=== PATIENT | male | born 1945 | race Caucasian/White ===

== ENCOUNTER 2023-12-31 13:15 | Observation (INO) | payer MEDICARE ==
--- NOTE | 2023-12-31 13:37 | ED ---
Fall HPI - General Chief Complaint: Fall Stated Complaint: Fall on thinners Time Seen by Provider: 12/31/23 13:30 Source: patient, family, RN notes reviewed Mode of arrival: ambulatory - History of Present Illness Initial Comments: This is a 78-year-old male presents emergency department company by his with referral from urgent care for upper respiratory infection symptoms and fall on thinners. Patient states that while he was at urgent care today he informed the provider that he had a lightheaded event while he was in the restroom on Friday which caused him to bump the side of his head on the wall. He was urged to come to the emergency department for further evaluation due to head injury on blood thinner use. Additionally patient states that he was evaluated at urgent care on Friday and was discharged home with oral amoxicillin where a viral swab was completed that was negative. States that his symptoms of cough and generalized fatigue have not been improving. Currently patient denies chest pain, shortness of breath, difficulty breathing, blurry or double vision, headaches. - Related Data Home Medications Medication Instructions Recorded Confirmed Alirocumab [Praluent Pen] 75 mg SQ Q14D 12/31/23 12/31/23 Amoxicillin 875 mg PO BID 12/31/23 12/31/23 Aspirin EC [Ecotrin Low Dose] 81 mg PO DAILY 12/31/23 12/31/23 Atorvastatin [Lipitor] 80 mg PO HS 12/31/23 12/31/23 Clopidogrel [Plavix] 75 mg PO DAILY 12/31/23 12/31/23 Fexofenadine HCl [Cherri Allergy] 180 mg PO DAILY 12/31/23 12/31/23 Pantoprazole [Protonix] 40 mg PO DAILY 12/31/23 12/31/23 carvediloL [Coreg] 3.125 mg PO BID 12/31/23 12/31/23 Allergies Allergy/AdvReac Type Severity Reaction Status Date / Time No Known Allergies Allergy Verified 12/31/23 16:33 Review of Systems ROS Statement: Those systems with pertinent positive or pertinent negative responses have been documented in the HPI. ROS Other: All systems not noted in ROS Statement are negative. Past Medical History Past Medical History: Hypertension, Myocardial Infarction ([place]) History of Any Multi-Drug Resistant Organisms: None Reported Past Surgical History: Heart Catheterization With Stent, Orthopedic Surgery Past Psychological History: No Psychological Hx Reported Smoking Status: Never smoker Past Alcohol Use History: None Reported Past Drug Use History: None Reported General Exam - General Exam Comments Initial Comments: Visual Physical Exam Vital signs reviewed General: Well-appearing, nontoxic, no acute distress. Head: Normocephalic, atraumatic Eyes: PERRLA, EOMI ENT: Airway patent Chest: Nonlabored breathing Skin: No visual rash, normal skin tone Neuro: Alert and oriented 3 Musculoskeletal: No gross abnormalities Limitations: no limitations General appearance: alert, in no apparent distress Head exam: Present: atraumatic, normocephalic, normal inspection Eye exam: Present: normal appearance, PERRL, EOMI. Absent: scleral icterus, conjunctival injection, periorbital swelling ENT exam: Present: normal exam, mucous membranes moist Neck exam: Present: normal inspection. Absent: tenderness, meningismus, lymphadenopathy Respiratory exam: Present: normal lung sounds bilaterally, wheezes, rhonchi (right lower lobe). Absent: respiratory distress, stridor Cardiovascular Exam: Present: regular rate, normal rhythm, normal heart sounds. Absent: systolic murmur, diastolic murmur, rubs, gallop, clicks GI/Abdominal exam: Present: soft, normal bowel sounds. Absent: distended, tenderness, guarding, rebound, rigid Extremities exam: Present: normal inspection, full ROM, normal capillary refill. Absent: tenderness, pedal edema, joint swelling, calf tenderness Back exam: Present: normal inspection Neurological exam: Present: alert, oriented X3, CN II-XII intact Course Vital Signs 12/31/23 12/31/23 13:16 16:58 Temperature 98.5 F Pulse Rate 74 69 Respiratory 16 18 Rate Blood Pressure 138/86 143/67 O2 Sat by Pulse 100 95 Oximetry Medical Decision Making - Medical Decision Making Was pt. sent in by a medical professional or institution (, PA, BAKERY SALES CLERK, urgent care, hospital, or [facility]...) When possible be specific @ -Patient was advised by urgent care to report to the emergency department for further evaluation of a head injury on blood thinners and to upper respiratory infection symptoms Did you speak to anyone other than the patient for history (EMS, parent, family, police, friend...)? What history was obtained from this source @ -I spoke to the patient's at bedside who states that the patient has been suffering upper respiratory infection symptoms such as cough fatigue and runny nose over the past few days. Did you review nursing and triage notes (agree or disagree)? Why? @ -I reviewed and agree with nursing and triage notes Were old charts reviewed (outside hosp., previous admission, EMS record, old EKG, old radiological studies, urgent care reports/EKG's, [facility] records)? Report findings @ -No old charts were reviewed Differential Diagnosis (chest pain, altered mental status, abdominal pain women, abdominal pain men, vaginal bleeding, weakness, fever, dyspnea, syncope, headache, dizziness, GI bleed, back pain, seizure, CVA, palpatations, mental health, musculoskeletal)? @ -COVID 19, RSV, influenza, pneumonia, acute bronchitis, URI, this list is not all inclusive EKG interpreted by me (3pts min.). @ -Completed at 1355 sinus rhythm with a ventricular rate of 69, SC interval 144, QTc 374. No acute signs of ischemia. X-rays interpreted by me (1pt min.). @ -Chest x-ray reveals possible underlying COPD with focal opacity/pneumonia at the right base CT interpreted by me (1pt min.). @ -CT of the brain and C-spine revealed no no acute intracranial or cervical abnormality noted U/S interpreted by me (1pt. min.). @ -None done What testing was considered but not performed or refused? (CT, X-rays, U/S, labs)? Why? @ -None What meds were considered but not given or refused? Why? @ -None Did you discuss the management of the patient with other professionals (stefania medel i.e. , PA, BAKERY SALES CLERK, lab, RT, psych nurse, social worker clinical, ham pumper, teacher, chief privacy officer, egg caser)? Give summary @ -I spoke with sound internal medicine physician Dr. Bernardo, reviewed the patient's presentation and findings concerning of hyponatremia with a sodium of 125 and right lobar pneumonia. Patient is accepted for admission. Was smoking cessation discussed for >3mins.? @ -No Was critical care preformed (if so, how long)? @ -No Were there social determinants of health that impacted care today? How? (Homelessness, low income, unemployed, alcoholism, drug addiction, transport ation, low edu. Level, literacy, decrease access to med. care, [facility], rehab)? @ -No Was there de-escalation of care discussed even if they declined (Discuss DNR or withdrawal of care, Hospice)? DNR status @ -No What co-morbidities impacted this encounter? (DM, HTN, Smoking, COPD, CAD, Cancer, CVA, ARF, Chemo, Hep., AIDS, mental health diagnosis, sleep apnea, morbid obesity)? @ -None Was patient admitted / discharged? Hospital course, mention meds given and route, prescriptions, significant lab abnormalities, going to OR and other pertinent info. @ -Admitted. 78-year-old male with a fall on blood thinners and upper respiratory infection symptoms. On physical examination patient is in no signs acute distress, there are signs of wheezing and rhonchi of the right lower lobe. Vitals are stable. There are no neurological or focal deficits. CT brain and C-spine negative for acute process. Chest x-ray concerning for right pneumonia, generally laboratory studies reveal CBC is unremarkable, coagulation profile within normal limits, hyponatremia with a sodium of 125 and mild wang saminitis with an AST 77 ALT 75, troponin not elevated at less than 0.012, cephid negative. Patient is provided with a liter fluid bolus in the emergency department and will be admitted to internal medicine for continued fluid hydration and antibiotics for hyponatremia and pneumonia. Discussed with Dr. Hayden Undiagnosed new problem with uncertain prognosis? @ -No Drug Therapy requiring intensive monitoring for toxicity (Heparin, Nitro, Insulin, Cardizem)? @ -No Were any procedures done? @ -No Diagnosis/symptom? @ -Hyponatremia, pneumonia Acute, or Chronic, or Acute on Chronic? @ -acute Uncomplicated (without systemic symptoms) or Complicated (systemic symptoms)? @ -uncomplicated Side effects of treatment? @ -No Exacerbation, Progression, or Severe Exacerbation? @ -No Poses a threat to life or bodily function? How? (Chest pain, [place], [place], pneumonia, PE, COPD, DKA, ARF, appy, cholecystitis, CVA, Diverticulitis, Homicidal, Suicidal, threat to staff... and all critical care pts) @ -Yes, untreated pneumonia can lead to potential sepsis and multiorgan system dysfunction - Lab Data Result diagrams: 12/31/23 14:10 12/31/23 14:10 Lab Results 12/31/23 12/31/23 12/31/23 Range/Units 14:10 14:10 14:10 WBC 7.8 (3.8-10.6) k/uL RBC 4.33 (4.30-5.90) m/uL Hgb 13.2 (13.0-17.5) gm/dL Hct 39.3 (39.0-53.0) % MCV 90.9 (80.0-100.0) fL MCH 30.4 (25.0-35.0) pg MCHC 33.5 (31.0-37.0) g/dL RDW 13.0 (11.5-15.5) % Plt Count 207 (150-450) k/uL MPV 8.7 Neutrophils % 81 % Lymphocytes % 10 % Monocytes % 6 % Eosinophils % 1 % Basophils % 0 % Neutrophils # 6.3 (1.3-7.7) k/uL Lymphocytes # 0.8 L (1.0-4.8) k/uL Monocytes # 0.5 (0-1.0) k/uL Eosinophils # 0.1 (0-0.7) k/uL Basophils # 0.0 (0-0.2) k/uL PT 10.8 (10.0-12.5) sec INR 1.0 (<1.2) APTT 32.1 H (22.0-30.0) sec Sodium 125 L (137-145) mmol/L Potassium 4.2 (3.5-5.1) mmol/L Chloride 92 L (98-107) mmol/L Carbon Dioxide 24 (22-30) mmol/L Anion Gap 9 mmol/L BUN 14 (9-20) mg/dL Creatinine 0.85 (0.66-1.25) mg/dL Est GFR (CKD-EPI)AfAm >90 (>60 ml/min/1.73 sqM) Est GFR (CKD-EPI)NonAf 83 (>60 ml/min/1.73 sqM) Glucose 108 H (74-99) mg/dL Calcium 8.7 (8.4-10.2) mg/dL Magnesium 2.1 (1.6-2.3) mg/dL Total Bilirubin 1.1 (0.2-1.3) mg/dL AST 77 H (17-59) U/L ALT 75 H (4-49) U/L Alkaline Phosphatase 70 (38-126) U/L Troponin I (0.000-0.034) ng/mL Total Protein 6.9 (6.3-8.2) g/dL Albumin 4.0 (3.5-5.0) g/dL Influenza Type A (PCR) (Not Detectd) Influenza Type B (PCR) (Not Detectd) RSV (PCR) (Not Detectd) SARS-CoV-2 (PCR) (Not Detectd) 12/31/23 12/31/23 Range/Units 14:10 14:10 WBC (3.8-10.6) k/uL RBC (4.30-5.90) m/uL Hgb (13.0-17.5) gm/dL Hct (39.0-53.0) % MCV (80.0-100.0) fL MCH (25.0-35.0) pg MCHC (31.0-37.0) g/dL RDW (11.5-15.5) % Plt Count (150-450) k/uL MPV Neutrophils % % Lymphocytes % % Monocytes % % Eosinophils % % Basophils % % Neutrophils # (1.3-7.7) k/uL Lymphocytes # (1.0-4.8) k/uL Monocytes # (0-1.0) k/uL Eosinophils # (0-0.7) k/uL Basophils # (0-0.2) k/uL PT (10.0-12.5) sec INR (<1.2) APTT (22.0-30.0) sec Sodium (137-145) mmol/L Potassium (3.5-5.1) mmol/L Chloride (98-107) mmol/L Carbon Dioxide (22-30) mmol/L Anion Gap mmol/L BUN (9-20) mg/dL Creatinine (0.66-1.25) mg/dL Est GFR (CKD-EPI)AfAm (>60 ml/min/1.73 sqM) Est GFR (CKD-EPI)NonAf (>60 ml/min/1.73 sqM) Glucose (74-99) mg/dL Calcium (8.4-10.2) mg/dL Magnesium (1.6-2.3) mg/dL Total Bilirubin (0.2-1.3) mg/dL AST (17-59) U/L ALT (4-49) U/L Alkaline Phosphatase (38-126) U/L Troponin I <0.012 (0.000-0.034) ng/mL Total Protein (6.3-8.2) g/dL Albumin (3.5-5.0) g/dL Influenza Type A (PCR) Not Detected (Not Detectd) Influenza Type B (PCR) Not Detected (Not Detectd) RSV (PCR) Not Detected (Not Detectd) SARS-CoV-2 (PCR) Not Detected (Not Detectd) Disposition Clinical Impression: Pneumonia, Hyponatremia Disposition: ADMITTED IP TO THIS [facility] Condition: Stable Decision to Admit Reason: Admit from EC Decision Date: 12/31/23 Decision Time: 16:12
[2023-12-31 14:20] LABS: Basophils % (A) 0 %; Eosinophils # (A) 0.1 k/uL (0-0.7); Eosinophils % (A) 1 %; HCT 39.3 % (39.0-53.0); HGB 13.2 gm/dL (13.0-17.5); Lymphocytes # (A) 0.8 k/uL (1.0-4.8); Lymphocytes % (A) 10 %; MCH 30.4 pg (25.0-35.0); MCHC 33.5 g/dL (31.0-37.0); MCV 90.9 fL (80.0-100.0); Mean Platelet Volume 8.7; Monocytes # (A) 0.5 k/uL (0-1.0); Monocytes % (A) 6 %; Neutrophils # (A) 6.3 k/uL (1.3-7.7); Neutrophils % (A) 81 %; Platelet Count 207 k/uL (150-450); RBC 4.33 m/uL (4.30-5.90); WBC 7.8 k/uL (3.8-10.6)
[2023-12-31 14:23] LABS: ALT 75 U/L (4-49); AST 77 U/L (17-59); African American GFR (CKD) >90 (>60 ml/min/1.73 sqM); Alkaline Phosphatase 70 U/L (38-126); Anion Gap 9 mmol/L; Blood Urea Nitrogen 14 mg/dL (9-20); Calcium 8.7 mg/dL (8.4-10.2); Carbon Dioxide 24 mmol/L (22-30); Chloride 92 mmol/L (98-107); Glucose 108 mg/dL (74-99); Magnesium 2.1 mg/dL (1.6-2.3); Non-African American GFR(CKD) 83 (>60 ml/min/1.73 sqM); Potassium 4.2 mmol/L (3.5-5.1); Sodium 125 mmol/L (137-145); Total Bilirubin 1.1 mg/dL (0.2-1.3); Total Protein 6.9 g/dL (6.3-8.2)
[2023-12-31 14:26] LABS: Partial Thromboplastin Time 32.1 sec (22.0-30.0); Prothrombin Time 10.8 sec (10.0-12.5)
[2023-12-31] MEDS: SODIUM CHLORIDE 0.9% 1,000 ML IV STA (14:36)
--- NOTE | 2023-12-31 14:40 | CT ---
EXAMINATION TYPE: CT brain odessa alicia DATE OF EXAM: 12/31/2023 COMPARISON: None HISTORY: FALL CT DLP: 1342.3 mGycm Automated exposure control for dose reduction was used. Technique: Examination of the head was done in axial plane without intravenous contrast. Coronal and sagittal reconstructions performed. CT of the cervical spine was obtained in axial plane without intravenous injection of contrast mater ial. Coronal and sagittal reformatted images were obtained from the axial views for evaluation of f ractures, spinal alignment and canal. FINDINGS: Head: There is no evidence of acute intracranial hemorrhage, acute ischemic changes, mass, mass-effect, or extra-axial fluid collection. There is no effacement of cerebral sulci or basal subarachnoid cister ns. There is no hydrocephalus. There is no midline shift. Gonzales-white matter distinction is preserv ed. Severe patchy white matter hypodensities in both cerebral hemispheres. Assess for calcifications in t he carotid siphons. Leftward nasal septal deviation. Trace mucosal thickening ethmoid air cells. Mastoid air cells well p neumatized. Orbits and globes are intact. Cervical spine: No craniocervical junction abnormality, predental space widening, or prevertebral soft tissue swellin g. Degenerative change of the C1 dens articulation. Moderate to advanced dissection plate degenerative change especially C4-C7 levels. Moderate multilevel facet arthropathy. Scattered moderate to severe uncovertebral joint arthropathy. Degenerative grade 1 anterolisthesis C2-C3 and C7-T1. Degenerative grade 1 retrolisthesis C3-C4, C4-C 5, C5-C6. No kye canal compromise identified by CT. No acute fracture is identified. Severe left neuroforaminal stenosis C3-C4. Moderate to severe left C4-C5. Moderate to severe on both sides at C5-C6 and Moderate to severe on the left at C6/C7. Sagittal and coronal reformatted images confirm above findings. COMBINED IMPRESSION: 1. Severe patchy burden of chronic small vessel ischemic disease. No acute intracranial abnormality s een. 2. No acute fracture of the cervical spine. Moderate to advanced multilevel spondylotic change with d egenerative grade 1 spondylolisthesis throughout most levels of the cervical spine. 3. Variable neuroforaminal stenoses as detailed above, severe on the left at C3-C4. [facility], Workstation: [email or web address] DEE, 12/31/2023 2:38 PM
--- NOTE | 2023-12-31 15:49 | XR ---
EXAMINATION TYPE: XR chest 2V DATE OF EXAM: 12/31/2023 COMPARISON: None HISTORY: 78-year-old male cough and wheezing TECHNIQUE: Frontal and lateral views FINDINGS: Heart upper limits of normal in size. There is mild hyperinflation. Calcified granuloma right upper l jaqueline. Patchy medial right basilar opacity. [facility] lower thoracic spine. IMPRESSION: 1. Possible underlying COPD. Clinically correlate. 2. Focal opacity/pneumonia at the right base. [facility], Workstation: [facility], 12/31/2023 3:46 PM
[2023-12-31] MEDS ORDERED: NALOXONE 0.4 MG/ML 1 ML VIAL IV PRN (16:12)
[2023-12-31] MEDS ORDERED: PNEUMONIA PROTOCOL UTILIZED 1 EACH MISC PO PRN (16:44)
[2023-12-31] MEDS: SODIUM CHLORIDE 0.9% 1,000 ML IV SCH (16:51)
--- NOTE | 2023-12-31 16:51 | P.HPIM ---
History of Present Illness H&P Date: 12/31/23 Patient is a 78-year-old male with a past medical history of CAD status post stents (June 2023) who presents from the urgent care center for evaluation of a fall that he had 4 days ago. Patient states that he had upper respiratory infection so he went to the urgent care today. When he told them about the fall and that he was on blood thinners they told him to go to the ED. Patient states that he has been having upper respiratory infection for 5 days. He states that he feels congested. He denies any sick contacts. He denies any fever or chills. He states that 4 days ago he passed out. He states that he was having a bowel movement and then felt nauseous so had to push hard so he could complete his bowel movement and make it to the sink so that he could vomit. Patient states that after vomiting he then passed out. He states that he gradually went down to the floor. His was present at the time. states that patient had passed out for about a minute. She states that he was incoherent for a minute and then he was fine. Patient denies any incontinence or tongue bite. In the ED patient CT head was negative for any acute intracranial abnormality. Patient's sodium was 125 and chloride 92 and AST and ALT slightly elevated at 77 and 75 respectively. Patient was negative for influenza RSV and COVID-19. Chest x-ray showed possible underlying COPD and focal opacity in the right base. Patient was admitted to the medicine service for further treatment and evaluati on. 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 No further workup. Follow-up outpatient with his PCP Coronary disease status post stent in June 2023 Continue with aspirin 81 mg p.o. daily, Plavix 75 mg p.o. daily, Coreg 3.125 mg p.o. twice daily, atorvastatin 80 mg at bedtime. DVT prophylaxis: Subcu heparin Past Medical History Past Medical History: Hypertension, Myocardial Infarction ([place]) History of Any Multi-Drug Resistant Organisms: None Reported Past Surgical History: Heart Catheterization With Stent, Orthopedic Surgery Past Psychological History: No Psychological Hx Reported Smoking Status: Never smoker Past Alcohol Use History: None Reported Past Drug Use History: None Reported Medications and Allergies Home Medications Medication Instructions Recorded Confirmed Type Alirocumab [Praluent Pen] 75 mg SQ Q14D 12/31/23 12/31/23 History Amoxicillin 875 mg PO BID 12/31/23 12/31/23 History Aspirin EC [Ecotrin Low Dose] 81 mg PO DAILY 12/31/23 12/31/23 History Atorvastatin [Lipitor] 80 mg PO HS 12/31/23 12/31/23 History Clopidogrel [Plavix] 75 mg PO DAILY 12/31/23 12/31/23 History Fexofenadine HCl [Cherri Allergy] 180 mg PO DAILY 12/31/23 12/31/23 History Pantoprazole [Protonix] 40 mg PO DAILY 12/31/23 12/31/23 History carvediloL [Coreg] 3.125 mg PO BID 12/31/23 12/31/23 History Allergies Allergy/AdvReac Type Severity Reaction Status Date / Time No Known Allergies Allergy Verified 12/31/23 16:33 Physical Exam Osteopathic Statement: *. No significant issues noted on an osteopathic structural exam other than those noted in the History and Physical/Consult. Vitals: Vital Signs Temp Pulse Resp BP Pulse Ox 12/31/23 13:16 98.5 F 74 16 138/86 100 Intake and Output 12/31/23 12/31/23 12/31/23 06:59 14:59 22:59 Other: Weight 79.379 kg Results CBC & Chem 7: 12/31/23 14:10 12/31/23 14:10 Labs: Abnormal Lab Results - Last 24 Hours (Table) 12/31/23 12/31/23 12/31/23 Range/Units 14:10 14:10 14:10 Lymphocytes # 0.8 L (1.0-4.8) k/uL APTT 32.1 H (22.0-30.0) sec Sodium 125 L (137-145) mmol/L Chloride 92 L (98-107) mmol/L Glucose 108 H (74-99) mg/dL AST 77 H (17-59) U/L ALT 75 H (4-49) U/L
[2023-12-31] MEDS: AZITHROMYCIN 500 MG TAB PO SCH (16:52)
[2023-12-31] MEDS: LEVOFLOXACIN 750MG-D5W PMX 750 MG in DEXTROSE/WATER 1 150ML.BAG IVPB STA (16:55)
[2023-12-31] MEDS: carvediloL 3.125 MG TAB PO SCH (17:33)
[2023-12-31] MEDS: HEPARIN SODIUM,PORCINE 5,000 UNIT/ML 1 ML VIAL SQ SCH (20:30)
[2023-12-31] MEDS: ATORVASTATIN 80 MG TAB PO SCH (20:30)
[2024-01-01] MEDS: ACETAMINOPHEN TAB 325 MG TAB PO PRN (02:55)
[2024-01-01] MEDS: PANTOPRAZOLE 40 MG TABLET PO SCH (08:29)
[2024-01-01] MEDS: CLOPIDOGREL 75 MG TAB PO SCH (08:29)
[2024-01-01] MEDS: LORATADINE 10 MG TAB PO SCH (08:29)
[2024-01-01] MEDS: ASPIRIN 81 MG PO SCH (08:29)
[2024-01-01 08:45] LABS: Basophils # (A) 0.02 X 10*3/uL (0.00-0.10); Basophils % (A) 0.3 %; Eosinophils % (A) 1.7 %; HCT 32.7 % (39.6-50.0); HGB 10.9 g/dL (13.0-17.0); Lymphocytes # (A) 0.88 X 10*3/uL (0.90-5.00); Lymphocytes % (A) 14.6 %; MCH 30.1 pg (27.0-32.0); MCHC 33.3 g/dL (32.0-37.0); MCV 90.3 FL (80.0-97.0); Mean Platelet Volume 10.1 FL (9.5-12.2); Monocytes # (A) 0.57 X 10*3/uL (0.20-1.00); Monocytes % (A) 9.5 %; NRBC Per 100 WBC 0 X 10*3/uL (0.00-0.01); Neutrophils # (A) 4.42 X 10*3/uL (1.80-7.70); Neutrophils % (A) 73.6 %; Platelet Count 188 X 10*3/uL (140-440); RBC 3.62 X 10*6/uL (4.40-5.60); RDW 13.2 % (11.5-14.5); WBC 6.01 X 10*3/uL (4.50-10.00)
[2024-01-01 08:52] LABS: ALT 73 U/L (10-49); AST 61 U/L (14-35); Albumin 3.2 g/dL (3.8-4.9); Albumin/Globulin Ratio 1.45 Ratio (1.60-3.17); Alkaline Phosphatase 65 U/L (41-126); BUN/Creat Ratio 11.89 Ratio (12.00-20.00); Blood Urea Nitrogen 10.7 mg/dL (9.0-27.0); Calcium 7.9 mg/dL (8.7-10.3); Chloride 101 mmol/L (96-109); Globulin 2.2 g/dL (1.6-3.3); Glucose 115 mg/dL (70-110); Potassium 3.8 mmol/L (3.5-5.5); Sodium 135 mmol/L (135-145); Total Bilirubin 0.6 mg/dL (0.3-1.2); Total Protein 5.4 g/dL (6.2-8.2)
[2024-01-01 09:05] VITALS: BP 121/54; PULSE 52; RESP 17; TEMP 97.9
--- NOTE | 2024-01-01 11:11 | P.DS ---
Providers Date of admission: 12/31/23 16:51 Attending physician: Casandra Bernardo MD Primary care physician: Physician Nonstaff Hospital Course: Discharge Diagnosis: Community-acquired pneumonia Syncope likely due to vasovagal as well as dehydration Hypovolemic hyponatremia: Resolved Mild transaminitis Coronary disease status post stent Hospital Course: Patient is a 78-year-old male with a past medical history of CAD status post stents (June 2023) who presents from the urgent care center for evaluation of a fall that he had 4 days ago. Patient states that he had upper respiratory infection so he went to the urgent care today. When he told them about the fall and that he was on blood thinners they told him to go to the ED. Patient states that he has been having upper respiratory infection for 5 days. He states that he feels congested. He denies any sick contacts. He denies any fever or chills. He states that 4 days ago he passed out. He states that he was having a bowel movement and then felt nauseous so had to push hard so he could complete his bowel movement and make it to the sink so that he could vomit. Patient states that after vomiting he then passed out. He states that he gradually went down to the floor. His was present at the time. states that patient had passed out for about a minute. She states that he was incoherent for a minute and then he was fine. Patient denies any incontinence or tongue bite. In the ED patient CT head was negative for any acute intracranial abnormality. Patient's sodium was 125 and chloride 92 and AST and ALT slightly elevated at 77 and 75 respectively. Patient was negative for influenza RSV and COVID-19. Chest x-ray showed possible underlying COPD and focal opacity in the right base. Patient was admitted to the medicine service for further treatment and evaluation. Patient was seen following day in the morning. He reported that he is feeling better. Patient sodium level had improved. I will discharge the patient on Augmentin for 5 more days. Patient was never requiring any oxygen during this hospitalization. Patient also did not meet sepsis criteria. I suspect the most likely etiology of his syncope is a combination of vasovagal as well as dehydration. 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 Patient Condition at Discharge: Stable Plan - Discharge Summary New Discharge Prescriptions: New Amoxic-Pot Clav 875-125Mg [Augmentin 875-125] 1 tab PO BID 5 Days #10 tab Loratadine [Claritin] 10 mg PO DAILY tab Continue Atorvastatin [Lipitor] 80 mg PO HS Alirocumab [Praluent Pen] 75 mg SQ Q14D carvediloL [Coreg] 3.125 mg PO BID Pantoprazole [Protonix] 40 mg PO DAILY Aspirin EC [Ecotrin Low Dose] 81 mg PO DAILY Clopidogrel [Plavix] 75 mg PO DAILY Discontinued Fexofenadine HCl [Cherri Allergy] 180 mg PO DAILY Amoxicillin 875 mg PO BID Discharge Medication List Alirocumab [Praluent Pen] 75 mg SQ Q14D 12/31/23 [History] Aspirin EC [Ecotrin Low Dose] 81 mg PO DAILY 12/31/23 [History] Atorvastatin [Lipitor] 80 mg PO HS 12/31/23 [History] Clopidogrel [Plavix] 75 mg PO DAILY 12/31/23 [History] Pantoprazole [Protonix] 40 mg PO DAILY 12/31/23 [History] carvediloL [Coreg] 3.125 mg PO BID 12/31/23 [History] Amoxic-Pot Clav 875-125Mg [Augmentin 875-125] 1 tab PO BID 5 Days #10 tab 01/01/24 [Rx] Loratadine [Claritin] 10 mg PO DAILY tab 01/01/24 [Rx] Follow up Appointment(s)/Referral(s): Nonstaff,Physician [Primary Care Provider] - 1-2 days
== END 2024-01-01 14:14 | disposition home or self-care (01) ==
LOC: EC 13:15 → INTOOBSV 16:51 → 4SSUR 16:51
PROVIDERS: ADMIT Internal Medicine; ATTEND Internal Medicine
DX: J18.9 Pneumonia, unspecified organism (principal); E87.1 Hypo-osmolality and hyponatremia; R55 Syncope and collapse; E86.0 Dehydration; E86.1 Hypovolemia; R74.01 Elevation of levels of liver transaminase levels; I10 Essential (primary) hypertension; I25.10 Atherosclerotic heart disease of native coronary artery without angina pectoris; I25.2 Old myocardial infarction; Z95.5 Presence of coronary angioplasty implant and graft; Z79.02 Long term (current) use of antithrombotics/antiplatelets; Z79.82 Long term (current) use of aspirin; Z79.899 Other long term (current) drug therapy
CPT/HCPCS: 36415; 70450; 71046; 72125; 80053; 83735; 84145; 84484; 85025; 85610; 85730; 87636; 93005; 96361; 96365; 96366; 96367; 96372; 99285